=== PATIENT | female | born 1940 | race Caucasian/White ===

== ENCOUNTER 2017-01-25 20:10 | Inpatient (IN) | payer OTHER, MEDICARE ==
[~2017-01-25 20:10] MED LIST: ATROPINE SULFATE 1 MG/10 ML SYRINGE IV ONE; EPINEPHrine HCL (1:10,000) 1 MG/10 ML SYRINGE IV ONE; EPINEPHrine HCL (1:1000) 30 MG/30 ML VIAL IV ONE; SODIUM BICARBONATE 8.4% INJ 50 MEQ/50 ML SYR IV ONE
[2017-01-25] MEDS ORDERED: ROCURONIUM INJ 50 MG/5 ML VIAL ONE (20:15)
[2017-01-25] MEDS ORDERED: ETOMIDATE 20 MG/10 ML VIAL ONE (20:15)
[2017-01-25] MEDS ORDERED: DIPHTH/TETANUS/ACEL PERTUSSIS (BOOSTER) 0.5 ML VIAL/PFS IM ONE ×2 (20:22→20:40)
[2017-01-25] MEDS ORDERED: ceFAZolin 2 GM PREMIX 50 ML ONE (20:22)
[2017-01-25] MEDS ORDERED: PROPOFOL 1000 MG/100 ML INJ 100 ML ONE (20:22)
[2017-01-25 20:37] LABS: I-STAT POTASSIUM 3.6 MMOL/L (3.5-4.9)
[2017-01-25] MEDS ORDERED: IOHEXOL 350 MG/ML 10 ML VIAL (for RAD DIAG) IV ONE (20:37)
[2017-01-25 20:39] LABS: AUTOMATED NEUTROPHIL # 10.3 TH/MM3 (1.8-7.7); BASOPHIL # 0.1 TH/MM3 (0-0.2); BASOPHIL % 0.5 % (0.0-2.0); EOSINOPHIL # 0.2 TH/MM3 (0-0.4); EOSINOPHIL % 1.6 % (0.0-4.0); HEMATOCRIT 38.6 % (35.0-46.0); HEMO FLAGS DIFF FINAL; LYMPH % 19.7 % (9.0-44.0); LYMPHOCYTE # 2.7 TH/MM3 (1.0-4.8); MEAN CELL VOLUME 87.3 FL (80.0-100.0); MEAN CORPUSCULAR HEMOGLOBIN 29.5 PG (27.0-34.0); MEAN CORPUSCULAR HGB CONC 33.7 % (32.0-36.0); NEUT % 74.2 % (16.0-70.0); PLATELET COUNT 244 TH/MM3 (150-450); RED BLOOD COUNT 4.42 MIL/MM3 (4.00-5.30); RED CELL DISTRIBUTION WIDTH 14.6 % (11.6-17.2); WHITE BLOOD COUNT 13.8 TH/MM3 (4.0-11.0)
[2017-01-25] MEDS ORDERED: ceFAZolin 2 GM PREMIX 50 ML IV STA (20:40)
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
[2017-01-25 21:01] LABS: APTT (PATIENT) 20.6 SEC (24.3-30.1); PROTHROMBIN TIME - PATIENT 10.9 SEC (9.8-11.6)
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
[2017-01-25] MEDS ORDERED: NOREPINEPHRINE-DEXTROSE DRIP 250 ML IV ONE (21:16)
[2017-01-25] MEDS ORDERED: ATROPINE SULFATE 1 MG/10 ML SYRINGE ONE ×2 (21:32→22:07)
[2017-01-25] MEDS ORDERED: SODIUM BICARBONATE 8.4% INJ 50 MEQ/50 ML SYR ONE ×2 (22:03→22:43)
[2017-01-25] MEDS ORDERED: EPINEPHrine HCL (1:10,000) 1 MG/10 ML SYRINGE ONE (22:06)
[2017-01-25] MEDS ORDERED: LIDOCAINE HCL 2% 100 MG/5 ML SYRINGE ONE (22:07)
[2017-01-25] MEDS ORDERED: MIDAZOLAM HCL 5 MG/ML VIAL (1 ML) ONE (22:10)
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
[2017-01-25] MEDS ORDERED: NOREPINEPHRINE 4 MG/4 ML AMP ONE ×2 (23:23→23:26)
[2017-01-26] VITALS (19 sets, daily range): BP systolic 58–115; BP diastolic 37–73; PULSE 100–141; RESP 16–22; TEMP 88.9–93.7; O2SAT 89–100
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
[2017-01-26] MEDS ORDERED: IODIXANOL 320 MG/ML 50 ML VIAL (for RAD SPEC) I-ARTERIAL ONE (00:30)
[2017-01-26] MEDS ORDERED: GELATIN 12 MM/7 MM FOAM OTHER ONE (00:30)
[2017-01-26] MEDS ORDERED: EPINEPHrine HCL (1:1000) 1 MG/ML VIAL ONE (00:36)
[2017-01-26 00:51] LABS: BLOOD GAS BASE EXCESS -20.2 mmol/L (-2-2); BLOOD GAS CARBOXYHEMOGLOBIN 0.5 % (0-4); BLOOD GAS HCO3 8 mmol/L (22-26); BLOOD GAS METHEMOGLOBIN 0.7 % (0-2); BLOOD GAS O2 HGB SATURATION 98 % (90-100); BLOOD GAS OXYGEN CONTENT 11.1 Vol % (12.0-20.0); BLOOD GAS PCO2 28 mmHg (38-42); BLOOD GAS PO2 251 mmHg (61-120); BLOOD GAS TOTAL HGB 7.6 G/DL (12.0-16.0); TEMP CORR TO 98.6
[2017-01-26 00:53] LABS: CRITICAL VALUE YES; OXYGEN DEVICE VENTILATOR
[2017-01-26 00:54] LABS: FIO2 100 %
[2017-01-26] MEDS ORDERED: VASOPRESSIN INJ 20 UNITS/ML VIAL ONE (00:54)
[2017-01-26 00:55] LABS: DRAW SITE ART LINE; STAT YES
[2017-01-26 01:00] LABS: BLOOD GAS BASE EXCESS -3.9 mmol/L (-2-2); BLOOD GAS CARBOXYHEMOGLOBIN 0.7 % (0-4); BLOOD GAS HCO3 22 mmol/L (22-26); BLOOD GAS METHEMOGLOBIN 0.8 % (0-2); BLOOD GAS O2 HGB SATURATION 98 % (90-100); BLOOD GAS OXYGEN CONTENT 16.3 Vol % (12.0-20.0); BLOOD GAS PCO2 46 mmHg (38-42); BLOOD GAS PO2 292 mmHg (61-120); BLOOD GAS TOTAL HGB 11.3 G/DL (12.0-16.0); CRITICAL VALUE YES; OXYGEN DEVICE VENTILATOR; TEMP CORR TO 98.6
[2017-01-26] MEDS ORDERED: SODIUM BICARBONATE 8.4% INJ 150 MEQ in SODIUM CHLOR 0.9% 1000 ML INJ 1,000 ML IV SCH (01:00)
[2017-01-26 01:01] LABS: DRAW SITE LT BRACHIAL; FIO2 100 %; NUMBER OF ARTERIAL PUNCTURES 1; STAT YES; ULNAR PULSE PRESENT
[2017-01-26] MEDS ORDERED: NOREPINEPHRINE 4 MG/4 ML AMP ONE (01:10)
[2017-01-26 01:16] LABS: MEAN CELL VOLUME 95.3 FL (80.0-100.0); MEAN CORPUSCULAR HEMOGLOBIN 31.2 PG (27.0-34.0); MEAN CORPUSCULAR HGB CONC 32.7 % (32.0-36.0); PLATELET COUNT 35 TH/MM3 (150-450); RED BLOOD COUNT 2.51 MIL/MM3 (4.00-5.30); RED CELL DISTRIBUTION WIDTH 15.2 % (11.6-17.2); WHITE BLOOD COUNT 8.1 TH/MM3 (4.0-11.0)
[2017-01-26 01:18] LABS: REVIEW FLAG FINAL
[2017-01-26] MEDS ORDERED: VASOPRESSIN 40 U/D5W 100 ML Hypotension, do NOT titrate (enter ordered rate) IV SCH ×2 (01:45)
[2017-01-26] MEDS ORDERED: NOREPINEPHRINE 4 MG/D5W 250 ML IV SCH (01:45)
[2017-01-26] MEDS ORDERED: SODIUM BICARBONATE 8.4% INJ 50 ML ONE ×2 (01:51→04:19)
[2017-01-26] MEDS ORDERED: SODIUM BICARBONATE 8.4% INJ 50 MEQ/50 ML SYR ONE (01:51)
[2017-01-26 01:53] LABS: BLOOD GAS BASE EXCESS -19.6 mmol/L (-2-2); BLOOD GAS CARBOXYHEMOGLOBIN 0.5 % (0-4); BLOOD GAS HCO3 10 mmol/L (22-26); BLOOD GAS METHEMOGLOBIN 0.7 % (0-2); BLOOD GAS O2 HGB SATURATION 97 % (90-100); BLOOD GAS OXYGEN CONTENT 9.2 Vol % (12.0-20.0); BLOOD GAS PCO2 46 mmHg (38-42); BLOOD GAS PO2 160 mmHg (61-120); BLOOD GAS TOTAL HGB 6.5 G/DL (12.0-16.0); TEMP CORR TO 98.6
[2017-01-26 01:56] LABS: CRITICAL VALUE YES
[2017-01-26 01:57] LABS: FIO2 100 %; OXYGEN DEVICE VENTILATOR
[2017-01-26 01:58] LABS: DRAW SITE ART LINE; STAT YES; VENT SETTINGS PCV
[2017-01-26] MEDS ORDERED: PROTHROMBIN COMPLEX CONC INJ 3,500 UNITS in SYRINGE/BAG 1 EA IV ONE (02:00)
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
[2017-01-26] MEDS: EPINEPHrine 2 MG/D5W 250 ML IV SCH ×4 (02:30→11:27)
[2017-01-26] MEDS ORDERED: NOREPINEPHRINE 8 MG/D5W 250 ML IV SCH ×2 (03:15)
[2017-01-26 04:08] LABS: BLOOD GAS BASE EXCESS -12.7 mmol/L (-2-2); BLOOD GAS CARBOXYHEMOGLOBIN 0.8 % (0-4); BLOOD GAS HCO3 16 mmol/L (22-26); BLOOD GAS O2 HGB SATURATION 93 % (90-100); BLOOD GAS PCO2 65 mmHg (38-42); BLOOD GAS PO2 84 mmHg (61-120); BLOOD GAS TOTAL HGB 8.3 G/DL (12.0-16.0); TEMP CORR TO 98.6
[2017-01-26 04:10] LABS: CRITICAL VALUE YES; FIO2 100 %; OXYGEN DEVICE VENTILATOR
[2017-01-26 04:11] LABS: DRAW SITE A; STAT YES
[2017-01-26 04:14] LABS: INTERNATIONAL NORMALIZED RATIO GREATER THAN 14.5 RATIO; PROTHROMBIN TIME - PATIENT GREATER THAN 180.0 SEC (9.8-11.6)
[2017-01-26 04:19] LABS: HEMATOCRIT 24.9 % (35.0-46.0); MEAN CELL VOLUME 88.1 FL (80.0-100.0); MEAN CORPUSCULAR HEMOGLOBIN 29.3 PG (27.0-34.0); MEAN CORPUSCULAR HGB CONC 33.2 % (32.0-36.0); PLATELET COUNT 137 TH/MM3 (150-450); RED BLOOD COUNT 2.82 MIL/MM3 (4.00-5.30); RED CELL DISTRIBUTION WIDTH 15.8 % (11.6-17.2); REVIEW FLAG FINAL
[2017-01-26 07:41] LABS: BLOOD GAS BASE EXCESS -14.6 mmol/L (-2-2); BLOOD GAS CARBOXYHEMOGLOBIN 0.8 % (0-4); BLOOD GAS HCO3 12 mmol/L (22-26); BLOOD GAS METHEMOGLOBIN 0.8 % (0-2); BLOOD GAS O2 HGB SATURATION 98 % (90-100); BLOOD GAS OXYGEN CONTENT 13.3 Vol % (12.0-20.0); BLOOD GAS PCO2 34 mmHg (38-42); BLOOD GAS PO2 222 mmHg (61-120); BLOOD GAS TOTAL HGB 9.3 G/DL (12.0-16.0); TEMP CORR TO 98.6
[2017-01-26 07:42] LABS: CRITICAL VALUE YES; DRAW SITE ART LINE; FIO2 100 %; OXYGEN DEVICE VENTILATOR; STAT YES
[2017-01-26 07:59] LABS: HEMATOCRIT 28.6 % (35.0-46.0); MEAN CELL VOLUME 88.6 FL (80.0-100.0); MEAN CORPUSCULAR HEMOGLOBIN 29.4 PG (27.0-34.0); MEAN CORPUSCULAR HGB CONC 33.2 % (32.0-36.0); PLATELET COUNT 136 TH/MM3 (150-450); RED BLOOD COUNT 3.23 MIL/MM3 (4.00-5.30); RED CELL DISTRIBUTION WIDTH 15.6 % (11.6-17.2); REVIEW FLAG FINAL; WHITE BLOOD COUNT 5.3 TH/MM3 (4.0-11.0)
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
[2017-01-26 08:14] LABS: PROTHROMBIN TIME - PATIENT 22.3 SEC (9.8-11.6)
[2017-01-26 08:24] LABS: APTT (PATIENT) 124.5 SEC (24.3-30.1)
[2017-01-26 08:32] LABS: CALCIUM-PROTEIN CORRECTED 7.5 MG/DL (8.5-10.1); POTASSIUM 3.1 MEQ/L (3.5-5.1); TOTAL BILIRUBIN ADULT 1.3 MG/DL (0.2-1.0)
[2017-01-26] MEDS ORDERED: POTASSIUM CHLORIDE 25 MEQ EFFERVESCENT TAB PO PRN (09:45)
[2017-01-26] MEDS ORDERED: MAGNESIUM SULFATE INJ 2 GM in SODIUM CHLORIDE 0.9% INJ 96 ML IV PRN (09:45)
[2017-01-26] MEDS ORDERED: SODIUM PHOSPHATE INJ 30 MMOL in SODIUM CHLOR 0.9% 250 ML INJ 240 ML IV PRN (09:45)
[2017-01-26] MEDS ORDERED: MAGNESIUM OXIDE 400 MG TAB PO PRN (09:45)
[2017-01-26] MEDS ORDERED: POTASSIUM PHOSPHATE MONOBASIC 500 MG TAB PO/TUBE PRN (09:45)
[2017-01-26] MEDS ORDERED: MAGNESIUM SULFATE INJ 4 GM in SODIUM CHLORIDE 0.9% INJ 92 ML IV PRN (09:45)
[2017-01-26] MEDS ORDERED: POTASSIUM CHLOR 20 MEQ PREMIX 100 ML IV PRN ×2 (09:45)
[2017-01-26] MEDS ORDERED: POTASSIUM PHOSPHATE MONOBASIC 500 MG TAB PO PRN (09:45)
[2017-01-26] MEDS ORDERED: POTASSIUM PHOSPHATE INJ 30 MMOL in SODIUM CHLOR 0.9% 250 ML INJ 250 ML IV PRN (09:45)
[2017-01-26] MEDS ORDERED: POTASSIUM CHLOR 40 MEQ PREMIX 100 ML IV PRN ×2 (09:45)
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
[2017-01-26 12:47] LABS: MEAN CELL VOLUME 91.2 FL (80.0-100.0); MEAN CORPUSCULAR HEMOGLOBIN 29.2 PG (27.0-34.0); PLATELET COUNT 112 TH/MM3 (150-450); RED BLOOD COUNT 2.41 MIL/MM3 (4.00-5.30); RED CELL DISTRIBUTION WIDTH 16.2 % (11.6-17.2); WHITE BLOOD COUNT 5.4 TH/MM3 (4.0-11.0)
[2017-01-26 12:50] LABS: REVIEW FLAG FINAL
--- NOTE | 2017-01-26 13:43 | EKG ---
Date Performed: 01/25/2017 Time Performed: 22:21:56 PTAGE: 76 years EKG: Sinus rhythm . Possible inferior infarct - age undetermined Possible anterior infarct - age undetermined Lateral S T-T changes may be due to myocardial ischemia Low QRS voltages in precordial leads Abnormal ECG NO PREVIOUS TRACING DOCTOR: Elgin Amaya Interpretating Date/Time 01/26/2017 13:40:57
--- NOTE | 2017-01-26 15:47 | DEATH SUM ---
Pronouncement Date Pronounced : Jan 26, 2017 Time Of : 15:03 Pronouncement Called to pronounce of patient. Identified patient as Clarita Manuel with wrist band MR# [id number]. Patient with no cardiac activity in 2 separate leads and no palpable/auscible cardiac activity. Patient with no spontaneous respirations, no corneal reflex or response to painful stimuli. Pupils fixed and dilated. disconnected from ventilator. Preliminary Cause of : Cardiac arrest Valentin Alvarez MD Jan 26, 2017 15:47
== END 2017-01-26 18:02 | disposition expired | DRG 957 ==
LOC: NEPI 20:10 → EDBD 20:50 → NEDA 20:50 → N03B 21:00
PROVIDERS: ADMIT Surgery; ATTEND Surgery
PROC: 5A1935Z Respiratory Ventilation, Less than 24 Consecutive Hours (ICD-10-PCS; 2017-01-25)
PROC: 0BH17EZ Insertion of Endotracheal Airway into Trachea, Via Natural or Artificial Opening (ICD-10-PCS; 2017-01-25)
PROC: 30233K1 Transfusion of Nonautologous Frozen Plasma into Peripheral Vein, Percutaneous Approach (ICD-10-PCS; 2017-01-25)
PROC: 30233P1 Transfusion of Nonautologous Frozen Red Cells into Peripheral Vein, Percutaneous Approach (ICD-10-PCS; 2017-01-25)
PROC: 04LA3DZ Occlusion of Left Renal Artery with Intraluminal Device, Percutaneous Approach (ICD-10-PCS; principal; 2017-01-26)
PROC: 06L Lower Veins, Occlusion (ICD-10-PCS; 2017-01-26)
PROC: 6A550Z2 Pheresis of Platelets, Single (ICD-10-PCS; 2017-01-26)
DX: S35.41 Laceration of renal blood vessel (principal); D65 Disseminated intravascular coagulation [defibrination syndrome]; S37.012A Minor contusion of left kidney, initial encounter; R57.9 Shock, unspecified; S22.32XA Fracture of one rib, left side, initial encounter for closed fracture; S52.602A Unspecified fracture of lower end of left ulna, initial encounter for closed fracture; K66.1 Hemoperitoneum; E87.2 Acidosis; J98.11 Atelectasis; I51.7 Cardiomegaly; E04.2 Nontoxic multinodular goiter; S62.307A Unspecified fracture of fifth metacarpal bone, left hand, initial encounter for closed fracture; V43.52XA Car driver injured in collision with other type car in traffic accident, initial encounter; Y92.410 Unspecified street and highway as the place of occurrence of the external cause; Y93.89 Activity, other specified; Y99.9 Unspecified external cause status; R00.0 Tachycardia, unspecified; Z51.5 Encounter for palliative care; I46.9 Cardiac arrest, cause unspecified
CPT/HCPCS: 29125; 31500; 36011; 36245; 36251; 36430; 36556; 36600; 37241; 37244; 70450; 71010; 71260; 72125; 72170; 73100; 74177; 75831; 76937; 80053; 82435; 82565; 82805; 82947; 83605; 84100; 84132; 84295; 84484; 84520; 85025; 85027; 85610; 85730; 86850; 86900; 86901; 86920; 86927; 86965; 87641; 90471; 90715; 93005; 94002; 96374; 99291; C1751; C1769; C1887; C1894; C9132; G0269; G0390; J0171; J0461; J0690; J2250; J3010; J7030; J7060; L0150; P9016; P9017; P9035; Q9967